=== PATIENT | female | born 2000 | race American Indian/Alaskan Native ===

== ENCOUNTER 2020-09-07 09:48 | Emergency (ER) | payer SELFPAY ==
[2020-09-07] MEDS ORDERED: ACETAMINOPHEN 500 MG TAB PO ONE (10:14)
--- NOTE | 2020-09-07 10:24 | Event Note ---
ED Screening Note ED Screening Note: uri s/s with fever This initial assessment/diagnostic orders/clinical plan/treatment(s) is/are subject to change based on patients health status, clinical progression and re- assessment by fellow clinical providers in the ED. Further treatment and workup at subsequent clinical providers discretion. Patient/guardian urged not to elope from the ED as their condition may be serious if not clinically assessed and managed. Initial orders include: xray ro pna
--- NOTE | 2020-09-07 11:08 | XRay Report ---
CHEST 1 VIEW 09/07/2020 9:58 AM INDICATION / CLINICAL INFORMATION: sob. COMPARISON: None available. FINDINGS: SUPPORT DEVICES: None. HEART / MEDIASTINUM: No significant abnormality. LUNGS / PLEURA: Clear lungs. No significant pleural effusion. No pneumothorax. ADDITIONAL FINDINGS: No significant additional findings. IMPRESSION: 1. No acute abnormality of the chest. Signer Name: Archie Pearson MD Signed: 09/07/2020 11:03 AM Workstation Name: [id number]
--- NOTE | 2020-09-07 11:26 | Emergency Department Report ---
- General Chief Complaint: Upper Respiratory Infection Stated Complaint: SOB/CHEST PAIN Time Seen by Provider: 09/07/20 10:44 Source: patient Mode of arrival: Ambulatory Limitations: No Limitations - History of Present Illness Initial Comments: 20-year-old female with a past medical history of childhood asthma presents to the ER today with complaints of cold symptoms including a 1 week history of dry cough which she notices mainly when she takes a deep breath, shortness of breath mainly on exertion, and chest tightness. She denies any fever, chills or wheezing. She denies any apparent ill contacts or recent COVID-19 contacts. She has not taken a COVID-19 test since her symptoms started. She reports no other symptoms at this time. MD Complaint: cough -: Gradual, week(s) (1) - Related Data Previous Rx's Medication Instructions Recorded Last Taken Type Albuterol Mdi (or & Nicu Only) 2 puff IH QID PRN #8.5 gram 09/07/20 Unknown Rx [ProAir HFA Inhaler] Azithromycin [Zithromax Z-DARLIN] 250 mg PO DAILY #1 pack 09/07/20 Unknown Rx Cetirizine HCl [Zyrtec 10mg tab] 10 mg PO DAILY #30 tablet 09/07/20 Unknown Rx predniSONE [Deltasone] 50 mg PO QDAY #5 tab 09/07/20 Unknown Rx Allergies Allergy/AdvReac Type Severity Reaction Status Date / Time No Known Allergies Allergy Unverified 09/07/20 10:05 ED Review of Systems ROS: Stated complaint: SOB/CHEST PAIN Other details as noted in HPI Comment: All other systems reviewed and negative Constitutional: denies: chills, fever Respiratory: cough, SOB with exertion. denies: wheezing Cardiovascular: chest pain (Chest tightness), other Gastrointestinal: denies: abdominal pain, nausea, diarrhea Genitourinary: denies: urgency, dysuria, discharge Musculoskeletal: denies: back pain, joint swelling, arthralgia Skin: denies: rash, lesions Neurological: denies: headache, weakness, paresthesias ED Past Medical Hx - Past Medical History Previous Medical History?: No - Surgical History Past Surgical History?: No - Social History Smoking Status: Never Smoker Substance Use Type: None - Medications Home Medications: Home Medications Medication Instructions Recorded Confirmed Last Taken Type Albuterol Mdi (or & Nicu Only) 2 puff IH QID PRN #8.5 gram 09/07/20 Unknown Rx [ProAir HFA Inhaler] Azithromycin [Zithromax Z-DARLIN] 250 mg PO DAILY #1 pack 09/07/20 Unknown Rx Cetirizine HCl [Zyrtec 10mg tab] 10 mg PO DAILY #30 tablet 09/07/20 Unknown Rx predniSONE [Deltasone] 50 mg PO QDAY #5 tab 09/07/20 Unknown Rx ED Physical Exam - General Limitations: No Limitations General appearance: alert, in no apparent distress, obese - Head Head exam: Present: atraumatic, normocephalic, normal inspection - Eye Eye exam: Present: normal appearance, PERRL, EOMI Pupils: Present: normal accommodation - Neck Neck exam: Present: normal inspection, full ROM. Absent: meningismus - Respiratory Respiratory exam: Present: normal lung sounds bilaterally. Absent: respiratory distress - Cardiovascular Cardiovascular Exam: Present: regular rate, normal rhythm, normal heart sounds - GI/Abdominal GI/Abdominal exam: Present: soft. Absent: distended, tenderness - Extremities Exam Extremities exam: Absent: pedal edema, calf tenderness - Neurological Exam Neurological exam: Present: alert, oriented X3, CN II-XII intact, normal gait - Psychiatric Psychiatric exam: Present: normal affect, normal mood - Skin Skin exam: Present: intact ED Course Vital Signs 09/07/20 09/07/20 09:59 11:31 Temperature 100.6 F H 100.4 F H Pulse Rate 109 H 96 H Respiratory 20 18 Rate Blood Pressure 117/75 Blood Pressure 125/83 [Left] O2 Sat by Pulse 96 98 Oximetry ED Medical Decision Making - Radiology Data Radiology results: report reviewed Patient: FRANK HINSON MR#: [id number] : 2000 Acct:[id number] Age/Sex: 20 / F ADM Date: 09/07/20 Loc: ED Attending Dr: Ordering Physician: LAURIE VILLARREAL Date of Service: 09/07/20 Procedure(s): XR chest 1V ap Accession Number(s): [id number] cc: LAURIE VILLARREAL Fluoro Time In Minutes: CHEST 1 VIEW 09/07/2020 9:58 AM INDICATION / CLINICAL INFORMATION: sob. COMPARISON: None available. FINDINGS: SUPPORT DEVICES: None. HEART / MEDIASTINUM: No significant abnormality. LUNGS / PLEURA: Clear lungs. No significant pleural effusion. No pneumothorax. ADDITIONAL FINDINGS: No significant additional findings. IMPRESSION: 1. No acute abnormality of the chest. Signer Name: Archie Pearson MD Signed: 09/07/2020 11:03 AM Workstation Name: [id number] Transcribed By: [place] Dictated By: Archie Pearson MD Electronically Authenticated By: Archie Pearson MD Signed Date/Time: 09/07/20 1103 - Medical Decision Making 1143: Cxr shows nothing acute. Patient currently resting comfortably, playing on her phone, she is not in any acute pain or respiratory distress. Repeat vital signs show improvement of her heart rate, she is not hypoxic and her temperature is improving after Tylenol. Patient is not toxic or ill-appearing. She appears well-hydrated. Suspect URI with bronchitis at this time.The history, exam, diagnostic testing and current condition do not demonstrate an infectious process such as meningitis, severe pneumonia, retropharyngeal abscess, epiglottitis, sepsis or other serious bacterial infection requiring further testing, treatment, consultation or admission at this time. Discussed x-ray results, suspected diagnosis and treatment plan with patient. Recommend follow-up with primary care doctor. Patient stable at time of discharge. Critical care attestation.: If time is entered above; I have spent that time in minutes in the direct care of this critically ill patient, excluding procedure time. ED Disposition Clinical Impression: Bronchitis, URI (upper respiratory infection) Disposition: DC- TO HOME OR SELFCARE Is pt being admited?: No Does the pt Need Aspirin: No Condition: Stable Instructions: How to Use a Metered Dose Inhaler, Acute Bronchitis, Adult, [id number], Upper Respiratory Infection, Adult, [id number], Chronic Bronchitis (ED) Additional Instructions: I recommend that you use the inhaler, steroids and the Zyrtec as prescribed. Take the Zithromax as prescribed. You can take [id number] Robitussin or Mucinex to help your cough. I recommend that you follow-up for an outpatient Covid 19 test. Follow-up with the primary care doctor listed on your discharge instructions. Return to the ER if your symptoms changes or worsens in any way. Prescriptions: predniSONE [Deltasone] 50 mg PO QDAY #5 tab Albuterol Mdi (or & Nicu Only) [ProAir HFA Inhaler] 2 puff IH QID PRN #8.5 gram PRN Reason: Shortness Of Breath Azithromycin [Zithromax Z-DARLIN] 250 mg PO DAILY #1 pack Cetirizine HCl [Zyrtec 10mg tab] 10 mg PO DAILY #30 tablet Referrals: TONI MAGANA MD [Staff Physician] - 3-5 Days Forms: Work/School Release Form(ED) Time of Disposition: 11:32
[2020-09-07 11:31] VITALS: BP 125/83
== END 2020-09-07 11:54 | disposition home or self-care (01) ==
LOC: ED 09:48
DX: J40 Bronchitis, not specified as acute or chronic (principal); J06.9 Acute upper respiratory infection, unspecified; Z79.899 Other long term (current) drug therapy
CPT/HCPCS: 71045; 99283